=== PATIENT | female | born 1980 | race Caucasian/White ===

== ENCOUNTER 2016-09-21 15:59 | Inpatient (IN) | payer SELFPAY ==
[~2016-09-21] VITALS: Ht 165.1 cm; Wt 121.7 kg
[2016-09-21] MEDS ORDERED: ACETAMINOPHEN 325 MG TABLET PO ONE (16:30)
--- NOTE | 2016-09-21 17:03 | RAD ---
Chest, 2 views, 09/21/2016: History: Fever, cough The heart size and pulmonary vascularity are normal. There is moderate infiltrate in the left lower lobe. No definite right lung infiltrate is seen. There is no evidence of pleural fluid. IMPRESSION: Left lower lobe infiltrate suggesting pneumonia.
[2016-09-21 17:26] LABS: BASO % 0 % (0-3); EOS % 0 % (0-3); HEMATOCRIT 39.6 % (36.0-47.0); HEMOGLOBIN 13.5 g/dL (12.0-15.5); LYMPH # 1.3 x10^3/uL (1.0-4.8); LYMPH % 34 % (24-48); MEAN CORPUSCULAR HEMOGLOBIN 30 pg (25-35); MEAN CORPUSCULAR HGB CONC 34 g/dL (31-37); MEAN CORPUSCULAR VOLUME 88 fL (79-100); MONO # 0.2 x10^3/uL (0.0-1.1); MONO % 6 % (0-9); NEUT # 2.2 x10^3uL (1.8-7.7); NEUT % 60 % (31-73); PLATELET COUNT 191 x10^3/uL (140-400); RED BLOOD COUNT 4.49 x10^6/uL (3.50-5.40); RED CELL DISTRIBUTION WIDTH 13.7 % (11.5-14.5); WHITE BLOOD COUNT 3.8 x10^3/uL (4.0-11.0)
[2016-09-21 17:31] LABS: CREATININE 0.7 mg/dL (0.6-1.0); GFR 94.2
[2016-09-21 17:33] LABS: POTASSIUM 2.9 mmol/L (3.5-5.1)
--- NOTE | 2016-09-21 17:51 | PHYS DOC ---
Past History Past Medical History: Hypothyroid Past Surgical History: Appendectomy, Tubal ligation Alcohol Use: None Drug Use: None Adult General Chief Complaint Chief Complaint: COUGH HPI HPI This 36-year-old lady presents with a cough fever. Her symptoms have been going on since Monday. [facility] and was placed on doxycycline but felt that she was not getting better with continued fever and cough. Because of her fever cough and general malaise she presents now to our emergency department for evaluation Review of Systems Review of Systems Constitutional: The patient is cough fever and chills] Eyes: Denies change in visual acuity, redness, or eye pain [] HENT: Denies nasal congestion does have a slight sore throat from coughing sore throat [] Respiratory She presents with cough and fever and shortness of breath] Cardiovascular: No additional information not addressed in HPI [] GI: Denies abdominal pain, nausea, vomiting, bloody stools or diarrhea [] : Denies dysuria or hematuria [] Musculoskeletal: Denies back pain or joint pain [] Integument: Denies rash or skin lesions [] Neurologic: Denies headache, focal weakness or sensory changes [] Endocrine: Denies polyuria or polydipsia [] Current Medications Current Medications Current Medications Medications (Trade) Dose Ordered Sig/Randolph Start Time Stop Time Status Last Admin Dose Admin Acetaminophen (Tylenol) 650 mg 1X ONCE 09/21/16 16:30 09/21/16 16:31 UNV 09/21/16 17:03 650 MG Azithromycin 500 mg/Sodium Chloride 250 ml @ 250 mls/hr 1X ONCE 09/21/16 17:30 09/21/16 18:29 UNV Ceftriaxone Sodium 1 gm/ Sodium Chloride 50 ml @ 100 mls/hr 1X ONCE 09/21/16 17:30 09/21/16 17:59 UNV Physical Exam Physical Exam Constitutional: Well developed, well nourished, no acute distress, non-toxic appearance. [] HENT: Normocephalic, atraumatic, bilateral external ears normal, oropharynx moist, no oral exudates, nose normal. [] Eyes: PERRLA, EOMI, conjunctiva normal, no discharge. [] Neck: Normal range of motion, no tenderness, supple, no stridor. [] Cardiovascular:Heart rate regular rhythm, no murmur [] Lungs & Thorax: Bilateral breath sounds clear to auscultation she does have decreased breath sounds in the left base] Abdomen: Bowel sounds normal, soft, no tenderness, no masses, no pulsatile masses. [] Skin: Warm, dry, no erythema, no rash. [] Back: No tenderness, no CVA tenderness. [] Extremities: No tenderness, no cyanosis, no clubbing, ROM intact, no edema. [] Neurologic: Alert and oriented X 3, normal motor function, normal sensory function, no focal deficits noted. [] Psychologic: Affect normal, judgement normal, mood normal. [] Current Patient Data Vital Signs Vital Signs Date Time Temp Pulse Resp B/P (MAP) Pulse Ox O2 Delivery O2 Flow Rate FiO2 09/21/16 16:28 99.3 100 20 96 Room Air Lab Results Laboratory Tests Test 09/21/16 17:10 White Blood Count 3.8 x10^3/uL (4.0-11.0) L Red Blood Count 4.49 x10^6/uL (3.50-5.40) Hemoglobin 13.5 g/dL (12.0-15.5) Hematocrit 39.6 % (36.0-47.0) Mean Corpuscular Volume 88 fL (79-100) Mean Corpuscular Hemoglobin 30 pg (25-35) Mean Corpuscular Hemoglobin Concent 34 g/dL (31-37) Red Cell Distribution Width 13.7 % (11.5-14.5) Platelet Count 191 x10^3/uL (140-400) Neutrophils (%) (Auto) 60 % (31-73) Lymphocytes (%) (Auto) 34 % (24-48) Monocytes (%) (Auto) 6 % (0-9) Eosinophils (%) (Auto) 0 % (0-3) Basophils (%) (Auto) 0 % (0-3) Neutrophils # (Auto) 2.2 x10^3uL (1.8-7.7) Lymphocytes # (Auto) 1.3 x10^3/uL (1.0-4.8) Monocytes # (Auto) 0.2 x10^3/uL (0.0-1.1) Eosinophils # (Auto) 0.0 x10^3/uL (0.0-0.7) Basophils # (Auto) 0.0 x10^3/uL (0.0-0.2) Sodium Level 141 mmol/L (136-145) Potassium Level 2.9 mmol/L (3.5-5.1) *L Chloride Level 105 mmol/L (98-107) Carbon Dioxide Level 27 mmol/L (21-32) Anion Gap 9 (6-14) Blood Urea Nitrogen 6 mg/dL (7-20) L Creatinine 0.7 mg/dL (0.6-1.0) Estimated GFR (Cockcroft-Gault) 94.2 Glucose Level 96 mg/dL (70-99) Calcium Level 8.0 mg/dL (8.5-10.1) L EKG EKG [] Radiology/Procedures Radiology/Procedures Chest x-ray reveals a left lower lobe consolidation Impressions: Left lower lobe pneumonia Course & Med Decision Making Course & Med Decision Making As the patient has such a significant pneumonia as well as hypokalemia was decided to admit the hospital with IV antibiotics He was given IV fluids in the emergency department as well as being started on Rocephin and azithromycin she was also given 40 of K-Dur here in the emergency department [] Dragon Disclaimer Dragon Disclaimer This chart was dictated in whole or in part using Voice Recognition software in a busy, high-work load, and often noisy Emergency Department environment. It may contain unintended and wholly unrecognized errors or omissions. Departure Departure: Referrals: BROWN MCCURDY APRN (PCP) RICKY NAVARRO MD Sep 21, 2016 17:51
[2016-09-21] MEDS ORDERED: MORPHINE SULFATE 2 MG/ML DISP.SYRIN. IV PRN (18:00)
[2016-09-21] MEDS ORDERED: ONDANSETRON PF 4 MG/2 ML VIAL. IV PRN (18:00)
[2016-09-21] MEDS ORDERED: IV NORMAL SALINE 1,000ML 1,000 ML IV ONE (18:00)
[2016-09-21] MEDS ORDERED: POTASSIUM CHLORIDE 20 MEQ TABLET.ER. PO ONE (18:15)
[2016-09-21] MEDS ORDERED: AZITHROMYCIN 500 MG in IV NORMAL SALINE 250ML 250 ML IV ONE (18:15)
[2016-09-21] MEDS ORDERED: cefTRIAXone SODIUM 1 GM VIAL IV ONE (18:21)
[2016-09-21] MEDS ORDERED: AZITHROMYCIN 500 MG VIAL. IV ONE (18:21)
[2016-09-21] MEDS ORDERED: IV NORMAL SALINE 250ML 250 ML ONE (18:21)
[2016-09-21] MEDS ORDERED: IV NORMAL SALINE 50ML 50 ML ONE (18:21)
[2016-09-21 19:30] VITALS: BP 127/76
[2016-09-21] MEDS ORDERED: LEVO50TA5 PO (20:22)
[2016-09-21] MEDS ORDERED: GUAI600T47 PO (20:22)
[2016-09-21] MEDS ORDERED: DOXY100C2 PO (20:22)
--- NOTE | 2016-09-21 20:22 | ACF ---
Admission Criteria Forms PNEUMONIA, COMMUNITY ACQUIRED Clinical Indications for Admission to Inpatient Care ( Place 'X' for any and all applicable criteria): Admission is indicated for ANY ONE of the following (1)(2)(3): [ ]I. Hypoxemia indicated by ANY ONE of the following: [ ]a) Oxygen saturation less than 90% while breathing room air [ ]b) PO2 less than 60 mm Hg (8.0 kPa) while breathing room air [ ]c) Chronic lung disease with significant deterioration from baseline oxygenation [X]II. Appropriate diagnostic testing and treatment unavailable in outpatient or recovery facility (eg,testing or infection control measures unavailable(10) [ ]III. Moderate-risk or high-risk category patients (Pneumonia Severity Index (PSI) class IV or V, or CURB-65 score of 3 or greater). [ ]IV. Outpatient treatment failure as indicated by ANY ONE of the following(9) : [ ]a) Failure to respond to antibiotic (eg, resistant organism) [ ]b) Clinically significant adverse effects from medication (eg, vomiting) [ ]c) Complications of pneumonia (eg, empyema, bacteremia) [ ]d) Significant worsening of comorbid cond necessitating inpatient care (eg, chronic heart failure) [ ]V. Intermediate-risk category patients (eg, PSI class III or CURB-65 score 2) who do not improve with initial therapy and observation. [ ]. Immunocompromised patients (eg, AIDS, chronic steroid use) at moderate or high risk based on clinical evaluation. [ ]VII. Complicated pleural effusions (eg, exudative, loculated) [ ]VIII.Hemodynamic instability [ ] IX. Altered mental status that is severe or persistent. [ ]X. Dehydration that is severe or persistent. [ ]XI. Bacteremia [ ]XII. Respiratory finding (eg. tachypnea) that do not respond to outpatient or observation care treatment Extended stay beyond goal length of stay may be needed for (20) [ ]a) Unclear diagnosis [ ]b) Pleural disease [ ]c) Severe pneumonia or treatment failure (25 [ ]d) Respiratory failure (anticipate invasive or noninvasive ventilatory support) [ ]e) Abnormal serum electrolytes (serum Na concentration less than 135 mEq/L (mmol/L) (32)(33) [ ]f) Clinically significant comorbid illness (eg, heart failure, atrial fibrillation with rapid heart rate, alcohol withdrawal, renal insufficiency)(34)(35) [ ]g) Comorbid acute exacerbation of COPD(36) [ ]h) Concomitant diagnosis of malignancy that may be associated with malnutrition, immunologic impairment, or bronchial obstruction. [ ]i) Concomitant altered mental status [ ]j) Culture-identified Gram-negative or antibiotic-resistant organism (eg, Pseudomonas, methicillin-resistant Staphylococcus aureus)(30) [ ]k) Healthcare-associated pneumonia The original [facility] content created by [employer] has been revised. The portions of the content which have been revised are identified through the use of italic text or in bold, and [facility] has neither reviewed nor approved the modified material. All other unmodified content is copyright [employer] [facility] [employer]. Please see references footnoted in the original [employer] [facility] [employer] edition 2016 Admission Criteria Met?: Yes NAYELI KOWALSKI Sep 21, 2016 20:22
[2016-09-21] MEDS: IPRATRPIUM/ALBUTEROL 0.5/2.5MG 3 ML NEBU. NEB SCH (20:35)
[2016-09-21] MEDS: BENZONATATE 100 MG CAPSULE. PO PRN (20:46)
[2016-09-21 22:19] LABS: BILIRUBIN,URINE NEG (NEG); CLARITY,URINE HAZY; COLOR,URINE YELLOW; GLUCOSE,URINE NEG (NEG)
[2016-09-21 22:20] LABS: BACTERIA,URINE 0 /HPF (0-FEW); NITRITE,URINE NEG (NEG); RBC,URINE OCC /HPF (0-2); SQUAMOUS EPITHELIAL CELL,UR MANY /LPF; UROBILINOGEN,URINE 0.2 mg/dL (0.2 mg/dL)
--- NOTE | 2016-09-21 23:01 | NUR ---
The patient, Tamia Zambrano, 36 y/o, F admitted by Dr. Gannon, for pneumonia. [facility] where she was diagnosed with pneumonia. They started her on doxycycline, Mucinex and Tessalon Perles, with no improvement of symptoms. Pt was given written information regarding hospital policies, unit procedures and contact persons. Valuables were checked and left in room. Pt states that she has a 8/10 pain, resting in bed. Oriented to room and unit protocols, call light within reach. Pt is on RA. Antibiotics ordered and labs. Pt able to verbalize POC, will continue to monitor.
[2016-09-21 23:13] VITALS: BP 132/78
[2016-09-21] MEDS: ACETAMINOPHEN 325 MG TABLET PO PRN (23:15)
[2016-09-22] MEDS: BENZONATATE 100 MG CAPSULE. PO PRN ×3 (04:14→20:11)
[2016-09-22 04:20] VITALS: BP 108/72
[2016-09-22] MEDS: IPRATRPIUM/ALBUTEROL 0.5/2.5MG 3 ML NEBU. NEB SCH ×4 (05:38→20:49)
[2016-09-22] MEDS: LEVOTHYROXINE 50 MCG TABLET PO SCH (06:09)
[2016-09-22] MEDS: ACETAMINOPHEN 325 MG TABLET PO PRN ×2 (06:09→11:59)
[2016-09-22 06:31] LABS: BASO % 0 % (0-3); EOS % 0 % (0-3); HEMATOCRIT 36.9 % (36.0-47.0); HEMOGLOBIN 12.6 g/dL (12.0-15.5); LYMPH # 1.5 x10^3/uL (1.0-4.8); LYMPH % 45 % (24-48); MEAN CORPUSCULAR HEMOGLOBIN 30 pg (25-35); MEAN CORPUSCULAR HGB CONC 34 g/dL (31-37); MEAN CORPUSCULAR VOLUME 89 fL (79-100); MONO # 0.2 x10^3/uL (0.0-1.1); MONO % 7 % (0-9); NEUT # 1.6 x10^3uL (1.8-7.7); NEUT % 48 % (31-73); PLATELET COUNT 188 x10^3/uL (140-400); RED BLOOD COUNT 4.15 x10^6/uL (3.50-5.40); RED CELL DISTRIBUTION WIDTH 13.5 % (11.5-14.5); WHITE BLOOD COUNT 3.4 x10^3/uL (4.0-11.0)
[2016-09-22 06:47] LABS: ALBUMIN 2.8 g/dL (3.4-5.0); ALBUMIN/GLOBULIN RATIO 0.8 (1.0-1.7); CALCIUM 7.7 mg/dL (8.5-10.1); CREATININE 0.6 mg/dL (0.6-1.0); GFR 112.5; TOTAL BILIRUBIN 0.3 mg/dL (0.2-1.0); TOTAL PROTEIN 6.4 g/dL (6.4-8.2)
[2016-09-22 06:51] LABS: POTASSIUM 2.8 mmol/L (3.5-5.1)
[2016-09-22] MEDS ORDERED: POTASSIUM CHLORIDE 20 MEQ TABLET.ER. PO ONE ×4 (07:15→10:00)
[2016-09-22] MEDS ORDERED: PNEUMOCOCCAL VAX SCREEN. MC ONE (09:00)
[2016-09-22] MEDS ORDERED: PNEUMOC CONJ VACC 23-VALENT 0.5 ML VIAL. VAX IM ONE (09:00)
[2016-09-22 11:35] VITALS: BP 106/65
[2016-09-22] MEDS: traMADol 50 MG TABLET PO PRN ×2 (13:58→20:12)
--- NOTE | 2016-09-22 14:28 | HP ---
ADMIT DATE: 09/21/2016 HISTORY OF PRESENT ILLNESS: The patient is a 36-year-old female patient, who basically came to the Emergency Room complaining of cough, fever, generalized malaise. She apparently was seen on Monday and was given doxycycline, but the patient did not feel that she is getting any better, in fact getting worse and has frequent episodes of cough that is severe, sometimes ends up with vomiting. She was evaluated in the Emergency Room, was found to have on her chest x-ray left lower lobe pneumonia and was admitted for IV antibiotics as she has failed outpatient treatment. PAST MEDICAL HISTORY: Significant for hyperthyroidism. PAST SURGICAL HISTORY: Significant for appendectomy, tubal ligation, right wrist fracture, status post open reduction and internal fixation. ALLERGIES: She has no known drug allergies. MEDICATIONS: She was on following medications: Levothyroxine sodium 50 mcg once a day, Mucinex 600 mg twice a day and doxycycline hyclate 800 mg twice a day. REVIEW OF SYSTEMS: As per history of present illness. FAMILY HISTORY: She has 2 brothers and 2 sisters. One of her brother is morbidly obese, the other one is healthy. One of her sisters has hypoglycemia and the other has migraine headache. Her father is still alive at age 82 and has severe bronchial asthma. Mother is alive at the age of 67 and is known to have hyperthyroidism. SOCIAL HISTORY: She is engaged. She does not smoke, drinks alcohol occasionally. Does not use any drugs. She is a nurse at [employer]. REVIEW OF SYSTEMS: The patient denied any blurring of vision, cataract, glaucoma or macular degeneration. Denied any earache, tinnitus or sensorineural deafness. Denied any stuffy nose, postnasal drip, or nosebleed. She did complain of sore throat, but denied any nausea, vomiting, diarrhea or constipation. Did have some diarrhea initially and some episodes of vomiting following the severe bouts of cough. Denied any dysuria, frequency or hematuria. She did complain of chest tightness,. Did have also some chest pain because of coughing. Denied any orthopnea or paroxysmal nocturnal dyspnea. She does have cough, mostly dry. PHYSICAL EXAMINATION: GENERAL: On arrival to the Emergency Room, she was slightly tachypneic, tachycardic. No pallor, jaundice, cyanosis, thyromegaly. No jugular venous distention. No limb edema. VITAL SIGNS: Her heart rate was 100, blood pressure 127/76, temperature was 99.3, respiratory rate was 20, and oxygen saturation was 94%. HEAD, EYES, EARS, NOSE AND THROAT: Showed normocephalic, atraumatic. NECK: Supple. HEART: Showed normal first and second heart sounds with no gallop, rub or murmur. CHEST: Showed Central trachea, equal chest expansion, air entry. Sound with crepitation and distraction rub on the left side posteriorly. ABDOMEN: Distended, soft, nontender. No guarding or rigidity. No organomegaly. NEUROLOGIC: She is awake, alert, oriented to time, place and person. Cranial nerves intact. EXTREMITIES: She moves extremities without difficulty. LABORATORY DATA: Showed a white cell count of 3800, hemoglobin 13.5, hematocrit 39.6, MCV 88 and platelet count of 191,000. Her chemistry showed a serum sodium 141, potassium 2.9, chloride 105, bicarbonate 27, anion gap of 9, BUN 6, creatinine was 0.7. Her estimated GFR was 94 mL per minute. Her glucose 96 and calcium was 8. Her urine was yellow, hazy with a pH of 6, specific gravity of 1.010. The urine was negative for protein, glucose. However, the urine was negative for nitrite and leukocyte esterase. Occasional rbc's, 1 to 4 wbc's, no bacteria. Her group A streptococcus rapid testing was negative. Her chest x-ray showed that the heart size and pulmonary vascularity are normal. There is moderate infiltrate in the left lower lobe, no definite right lung infiltrate is seen. There is no evidence of pleural fluid. ASSESSMENT AND PLAN: In summary, this is a 36-year-old female patient, who was admitted with community-acquired pneumonia and has failed outpatient treatment. She was started on IV Zithromax and Rocephin. We will obviously follow her response and once her symptoms subsides we will discharge her home to continue antibiotics as an outpatient. RIELLY GOYAL MD DR: TOOTIE/lyla JOB#: [id number] / [id number]
[2016-09-22 16:16] VITALS: BP 94/60
[2016-09-22] MEDS ORDERED: AZITHROMYCIN 250 MG TABLET. PO SCH (17:00)
[2016-09-22 19:46] VITALS: BP 137/79
[2016-09-22] MEDS ORDERED: AZITHROMYCIN 500 MG in IV NORMAL SALINE 250ML 250 ML IV SCH (20:00)
[2016-09-22] MEDS: POTASSIUM CHLORIDE 20 MEQ TABLET.ER. PO SCH (20:11)
[2016-09-22 23:42] VITALS: BP 134/97
[2016-09-23] MEDS: traMADol 50 MG TABLET PO PRN ×2 (00:10→06:10)
[2016-09-23] MEDS: BENZONATATE 100 MG CAPSULE. PO PRN ×2 (03:03→08:51)
[2016-09-23] MEDS: IPRATRPIUM/ALBUTEROL 0.5/2.5MG 3 ML NEBU. NEB SCH ×2 (05:39→11:03)
[2016-09-23 05:47] VITALS: BP 121/66
[2016-09-23] MEDS: LEVOTHYROXINE 50 MCG TABLET PO SCH (05:52)
[2016-09-23 06:00] LABS: BASO % 0 % (0-3); EOS % 0 % (0-3); HEMATOCRIT 36.5 % (36.0-47.0); LYMPH # 1.6 x10^3/uL (1.0-4.8); LYMPH % 47 % (24-48); MEAN CORPUSCULAR HEMOGLOBIN 30 pg (25-35); MEAN CORPUSCULAR HGB CONC 33 g/dL (31-37); MEAN CORPUSCULAR VOLUME 90 fL (79-100); MONO # 0.2 x10^3/uL (0.0-1.1); MONO % 7 % (0-9); NEUT # 1.6 x10^3uL (1.8-7.7); NEUT % 46 % (31-73); PLATELET COUNT 207 x10^3/uL (140-400); RED BLOOD COUNT 4.05 x10^6/uL (3.50-5.40); RED CELL DISTRIBUTION WIDTH 13.9 % (11.5-14.5); WHITE BLOOD COUNT 3.4 x10^3/uL (4.0-11.0)
[2016-09-23 06:24] LABS: ALBUMIN 2.7 g/dL (3.4-5.0); ALBUMIN/GLOBULIN RATIO 0.8 (1.0-1.7); CREATININE 0.6 mg/dL (0.6-1.0); GFR 112.5; POTASSIUM 4.4 mmol/L (3.5-5.1); TOTAL BILIRUBIN 0.2 mg/dL (0.2-1.0); TOTAL PROTEIN 6.3 g/dL (6.4-8.2)
[2016-09-23] MEDS: POTASSIUM CHLORIDE 20 MEQ TABLET.ER. PO SCH (08:48)
--- NOTE | 2016-09-23 08:51 | NUR ---
PRN tessalon perles given for coughing per patient request. States she slept a little better last night but is sore from coughing. Will continue to monitor.
[2016-09-23] MEDS ORDERED: CEFP200T PO (10:43)
[2016-09-23] MEDS ORDERED: AZIT500T PO (10:43)
[2016-09-23 11:09] VITALS: BP 129/67
--- NOTE | 2016-09-23 12:40 | NUR ---
Discharge Note: NICKY HOLLIDAY [address] Discharge instructions and discharge home medications reviewed with Patient and a copy given. All questions have been answered and understanding verbalized. The following instructions and handouts were given: Adult Pneumonia Discontinued lines and drains: IV discontinued. Patient discharged to home. Picked up and transported by her mother.
--- NOTE | 2016-09-23 20:24 | DS ---
DATE OF DISCHARGE: 09/23/2016 HOSPITAL COURSE: The patient is sitting slightly propped up in bed, in no apparent distress. On questioning her, she denied any complaint, in particular no chest pain or shortness of breath. Cough is much less. She is afebrile. She is hemodynamically stable with normal white cell count and therefore, a decision was made to discharge her home to continue treatment as an outpatient with oral antibiotics. PHYSICAL EXAMINATION: GENERAL: When I saw her this morning, she looked well and was clearly in no apparent respiratory distress, pale, but no jaundice, cyanosis, or thyromegaly. No jugular venous distention. No limb edema. VITAL SIGNS: Her heart rate was 73, blood pressure was 121/66, temperature was 98.9, respiratory rate 16, and oxygen saturation was 92% on room air. HEAD, EYES, EARS, NOSE, AND THROAT: Showed normocephalic, atraumatic. NECK: Supple. HEART: Showed normal first and second sounds. No gallop, rub, or murmur. CHEST: Clear to auscultation. No crepitation or rhonchi. I could not really appreciate any crackles or rhonchi. ABDOMEN: Distended, soft, nontender. No guarding or rigidity. No organomegaly. Hernial orifices intact. Bowel sounds normal. NEUROLOGIC: She was awake, alert, responding appropriately. Cranial nerves intact. She moves all extremities without difficulty. She ambulates without assistance or assistive devices. Her intake was 540, output was 150. LABORATORY DATA: Her lab work showed a white cell count 3400, hemoglobin 12, hematocrit 36.5, MCV 90 and platelet count 207,000 with normal manual differential. Her chemistry showed a serum sodium 141, potassium 4.4, chloride 106, bicarbonate 27, anion gap of 8, BUN 6, creatinine 0.6, estimated GFR was 112.5 mL per minute. Her glucose 96, calcium 8. Total bilirubin, AST, ALT, alkaline phosphatase were normal. Total protein was 6.3, albumin 2.7. DISCHARGE MEDICATIONS: The patient will be discharged home to continue on following medications: Azithromycin 500 mg once a day for 7 days, cefpodoxime 200 mg twice a day for 7 days, Mucinex 600 mg twice a day and levothyroxine sodium 50 mcg once a day. FINAL DISCHARGE DIAGNOSES: 1. Community-acquired pneumonia. 2. Severe hypokalemia, resolved. 3. Hypothyroidism on Synthroid 50 mcg once a day and seems to be clinically euthyroid. 4. Protein-calorie malnutrition with serum albumin was 2.7 g/dL. REILLY GOYAL MD DR: TOOTIE/lyla JOB#: [id number] / [id number]
== END 2016-09-23 12:42 | disposition home or self-care (01) | DRG 871 ==
LOC: ER 15:59 → 1 SOUTH 17:56
PROVIDERS: ADMIT Internal Medicine; ATTEND Internal Medicine
DX: A41.9 Sepsis, unspecified organism (principal); J18.9 Pneumonia, unspecified organism; E43 Unspecified severe protein-calorie malnutrition; Z68.41 Body mass index [BMI] 40.0-44.9, adult; E87.6 Hypokalemia; E05.90 Thyrotoxicosis, unspecified without thyrotoxic crisis or storm; E03.9 Hypothyroidism, unspecified; Z82.5 Family history of asthma and other chronic lower respiratory diseases; Z90.49 Acquired absence of other specified parts of digestive tract; Z98.51 Tubal ligation status
CPT/HCPCS: 36415; 71020; 80048; 80053; 81001; 83605; 84132; 85027; 87040; 87070; 87880; 94640; G0238; J0456; J0696; J2405; J7050; J7620; 99285-25; J7030

== ENCOUNTER 2019-06-03 10:36 | Emergency (ER) | payer OTHER ==
[~2019-06-03] VITALS: Ht 165.1 cm; Wt 118.0 kg
[~2019-06-03 10:36] MED LIST: AZIT500T PO; CEFP200T PO; DOXY100C2 PO; GUAI600T47 PO; LEVO50TA5 PO
[2019-06-03] MEDS ORDERED: KETOROLAC 30 MG/ML VIAL. IVP ONE (11:30)
[2019-06-03 11:47] LABS: BASO # 0.1 x10^3/uL (0.0-0.2); BASO % 1 % (0-3); EOS # 0.2 x10^3/uL (0.0-0.7); EOS % 3 % (0-3); HEMATOCRIT 43.9 % (36.0-47.0); HEMOGLOBIN 14.5 g/dL (12.0-15.5); LYMPH # 2.4 x10^3/uL (1.0-4.8); LYMPH % 34 % (24-48); MEAN CORPUSCULAR HEMOGLOBIN 31 pg (25-35); MEAN CORPUSCULAR HGB CONC 33 g/dL (31-37); MEAN CORPUSCULAR VOLUME 93 fL (79-100); MONO # 0.5 x10^3/uL (0.0-1.1); MONO % 7 % (0-9); NEUT # 3.8 x10^3uL (1.8-7.7); NEUT % 55 % (31-73); PLATELET COUNT 353 x10^3/uL (140-400); RED BLOOD COUNT 4.74 x10^6/uL (3.50-5.40); RED CELL DISTRIBUTION WIDTH 13.2 % (11.5-14.5); WHITE BLOOD COUNT 6.9 x10^3/uL (4.0-11.0)
[2019-06-03 11:55] LABS: CALCIUM 8.6 mg/dL (8.5-10.1); CREATININE 0.7 mg/dL (0.6-1.0); GFR 93.2
[2019-06-03 12:01] LABS: ALBUMIN 3.8 g/dL (3.4-5.0); ALBUMIN/GLOBULIN RATIO 1.1 (1.0-1.7); TOTAL BILIRUBIN 0.3 mg/dL (0.2-1.0); TOTAL PROTEIN 7.4 g/dL (6.4-8.2)
[2019-06-03 12:15] LABS: BACTERIA,URINE FEW /HPF (0-FEW); BILIRUBIN,URINE NEG (NEG); CLARITY,URINE CLEAR; COLOR,URINE YELLOW; GLUCOSE,URINE NEG (NEG); NITRITE,URINE NEG (NEG); SQUAMOUS EPITHELIAL CELL,UR MOD /LPF; UROBILINOGEN,URINE 0.2 mg/dL (0.2 mg/dL)
--- NOTE | 2019-06-03 13:04 | RAD ---
Pelvic ultrasound HISTORY: Right-sided pelvic pain for 2 weeks. History of uterine ablation. Transabdominal scan: Poor visualization of uterus and adnexa. Endovaginal scan: Uterus measures 8.0 x 5.0 x 5.6 cm. Endometrial stripe measures 6 mm. The overall uterus is heterogeneous. Hypoechoic lesion within the uterine fundus measuring 17 x 16 x 10 mm, without evidence of vascularity. Another more anteriorly located uterine lesion measures 17 x 19 x 16 mm and is isoechoic. This demonstrates some internal vascularity. There is suggestion of a "Venetian blind" appearance which can be associated with adenomyosis of the uterus. Right ovary measures 3.4 cm with intact blood supply. Right ovarian cystic lesion measuring 20 x 18 x 15 mm has a simple appearance apart from an internal septation. Left ovary measures 3.2 cm with intact blood supply and a 17 mm cyst/dominant follicle. Nabothian cyst is noted. Mild free pelvic fluid is seen. This has a simple appearance. IMPRESSION: 1. Heterogeneous uterus with a couple of focal lesions and suggestion of a "Venetian blind" appearance. One of the uterine lesions demonstrate and vascularity. Findings could indicate uterine adenomyosis or uterine fibroids. Other etiologies are considered less likely but difficult to exclude. Could further evaluate with short-term follow-up pelvic ultrasound or MR of the uterus. 2. 2.0 cm cystic lesion within the right ovary, most compatible with a septated cyst. Electronically signed by: Mark Saavedra MD (06/03/2019 1:01 PM) [id number]
--- NOTE | 2019-06-03 13:04 | RAD ---
EXAM: AP, lateral and lumbosacral spot views of the lumbar spine DATE: 06/03/2019 11:50 AM INDICATION: Low back pain, radiating to right buttock area COMPARISON: No Prior FINDINGS: Vertebral body heights are preserved. There are 5 nonrib-bearing lumbar-type vertebral bodies. Disc heights are preserved. Straightening of the normal lumbar lordosis. No spondylolisthesis. Moderate colonic stool content is seen. IMPRESSION: 1. Negative acute fracture or subluxation. Electronically signed by: Adolfo Colin MD (06/03/2019 1:01 PM) [id number]
--- NOTE | 2019-06-03 13:07 | PHYS DOC ---
Past History Past Medical History: Hypothyroid Past Surgical History: Appendectomy, Tubal ligation Alcohol Use: None Drug Use: None Adult General Chief Complaint Chief Complaint: BACK PAIN - NO INJURY HPI HPI Patient is a 38-year-old female who presented to ER today for evaluation of right side lower abdominal pain, right-sided groin pain, right-sided buttock pain, cramping and spasm in nature, symptom had been going on off and on for 3 weeks. Patient was seen by her [employer]PER doctor, had pelvic exam done, had ultrasound ordered for her pelvic next week, she continued to have pain, worse with sitting on her buttock, relieve by standing. NO injury. No bowel or bladder incontinence no nausea vomiting. No fever Review of Systems Review of Systems Constitutional: Denies fever or chills [] Eyes: Denies change in visual acuity, redness, or eye pain [] HENT: Denies nasal congestion or sore throat [] Respiratory: Denies cough or shortness of breath [] Cardiovascular: No additional information not addressed in HPI [] GI: positive for right side lower abdominal pain, no nausea, vomiting, bloody stools or diarrhea [] : Denies dysuria or hematuria [] Musculoskeletal: Positive for lower back pain, no joint pain [] Integument: Denies rash or skin lesions [] Neurologic: Denies headache, focal weakness or sensory changes [] Endocrine: Denies polyuria or polydipsia [] All other systems were reviewed and found to be within normal limits, except as documented in this note. Current Medications Current Medications Current Medications Medications (Trade) Dose Ordered Sig/Randolph Start Time Stop Time Status Last Admin Dose Admin Ketorolac Tromethamine (Toradol 30mg Vial) 30 mg 1X ONCE 06/03/19 11:30 06/03/19 11:38 DC 06/03/19 11:39 30 MG Allergies Allergies Allergies Coded Allergies Type Severity Reaction Last Updated Verified No Known Drug Allergies 09/21/16 No Physical Exam Physical Exam Constitutional: Well developed, well nourished, no acute distress, non-toxic appearance. [] HENT: Normocephalic, atraumatic, bilateral external ears normal, oropharynx moist, no oral exudates, nose normal. [] Eyes: PERRLA, EOMI, conjunctiva normal, no discharge. [] Neck: Normal range of motion, no tenderness, supple, no stridor. [] Cardiovascular:Heart rate regular rhythm, no murmur [] Lungs & Thorax: Bilateral breath sounds clear to auscultation [] Abdomen: Bowel sounds normal, soft, there is tenderness at right groin area, right lower abdominal area, no masses, no pulsatile masses. [] Skin: Warm, dry, no erythema, no rash. [] Back: No tenderness, no CVA tenderness. [] Extremities: No tenderness, no cyanosis, no clubbing, ROM intact, no edema. [] Neurologic: Alert and oriented X 3, normal motor function, normal sensory function, no focal deficits noted. [] Psychologic: Affect normal, judgement normal, mood normal. [] Current Patient Data Vital Signs Vital Signs Date Time Temp Pulse Resp B/P (MAP) Pulse Ox O2 Delivery O2 Flow Rate FiO2 06/03/19 10:38 98.2 75 16 144/82 (102) 98 Room Air Lab Results Laboratory Tests Test 06/03/19 11:28 06/03/19 11:33 06/03/19 11:49 White Blood Count 6.9 x10^3/uL (4.0-11.0) Red Blood Count 4.74 x10^6/uL (3.50-5.40) Hemoglobin 14.5 g/dL (12.0-15.5) Hematocrit 43.9 % (36.0-47.0) Mean Corpuscular Volume 93 fL (79-100) Mean Corpuscular Hemoglobin 31 pg (25-35) Mean Corpuscular Hemoglobin Concent 33 g/dL (31-37) Red Cell Distribution Width 13.2 % (11.5-14.5) Platelet Count 353 x10^3/uL (140-400) Neutrophils (%) (Auto) 55 % (31-73) Lymphocytes (%) (Auto) 34 % (24-48) Monocytes (%) (Auto) 7 % (0-9) Eosinophils (%) (Auto) 3 % (0-3) Basophils (%) (Auto) 1 % (0-3) Neutrophils # (Auto) 3.8 x10^3uL (1.8-7.7) Lymphocytes # (Auto) 2.4 x10^3/uL (1.0-4.8) Monocytes # (Auto) 0.5 x10^3/uL (0.0-1.1) Eosinophils # (Auto) 0.2 x10^3/uL (0.0-0.7) Basophils # (Auto) 0.1 x10^3/uL (0.0-0.2) Sodium Level 142 mmol/L (136-145) Potassium Level 4.0 mmol/L (3.5-5.1) Chloride Level 105 mmol/L (98-107) Carbon Dioxide Level 28 mmol/L (21-32) Anion Gap 9 (6-14) Blood Urea Nitrogen 12 mg/dL (7-20) Creatinine 0.7 mg/dL (0.6-1.0) Estimated GFR (Cockcroft-Gault) 93.2 BUN/Creatinine Ratio 17 (6-20) Glucose Level 90 mg/dL (70-99) Calcium Level 8.6 mg/dL (8.5-10.1) Total Bilirubin 0.3 mg/dL (0.2-1.0) Aspartate Amino Transferase (AST) 18 U/L (15-37) Alanine Aminotransferase (ALT) 33 U/L (14-59) Alkaline Phosphatase 56 U/L (46-116) Total Protein 7.4 g/dL (6.4-8.2) Albumin 3.8 g/dL (3.4-5.0) Albumin/Globulin Ratio 1.1 (1.0-1.7) Urine Collection Type Unknown Urine Color Yellow Urine Clarity Clear Urine pH 8.0 Urine Specific [place] 1.020 Urine Protein Neg (NEG-TRACE) Urine Glucose (UA) Neg mg/dL (NEG) Urine Ketones (Stick) Neg mg/dL (NEG) Urine Blood Neg (NEG) Urine Nitrite Neg (NEG) Urine Bilirubin Neg (NEG) Urine Urobilinogen Dipstick 0.2 mg/dL (0.2 mg/dL) Urine Leukocyte Esterase Neg (NEG) Urine RBC 1-2 /HPF (0-2) Urine WBC 1-4 /HPF (0-4) Urine Squamous Epithelial Cells Mod /LPF Urine Bacteria Few /HPF (0-FEW) Urine Mucus Slight /LPF POC Urine HCG, Qualitative hcg negative (Negative) EKG EKG [] Radiology/Procedures Radiology/Procedures [][address] [address] IMAGING REPORT Signed PATIENT: NICKY NGUYEN ACCOUNT: [id number] : 1980 LOCATION: ER AGE: 38 SEX: F EXAM STATUS: REG ER ORD. PHYSICIAN: ANNA JIMENEZ DO REASON: right side pelvic pain for 2 weeks PROCEDURE: US PELVIS W/TV Pelvic ultrasound HISTORY: Right-sided pelvic pain for 2 weeks. History of uterine ablation. Transabdominal scan: Poor visualization of uterus and adnexa. Endovaginal scan: Uterus measures 8.0 x 5.0 x 5.6 cm. Endometrial stripe measures 6 mm. The overall uterus is heterogeneous. Hypoechoic lesion within the uterine fundus measuring 17 x 16 x 10 mm, without evidence of vascularity. Another more anteriorly located uterine lesion measures 17 x 19 x 16 mm and is isoechoic. This demonstrates some internal vascularity. There is suggestion of a "Venetian blind" appearance which can be associated with adenomyosis of the uterus. Right ovary measures 3.4 cm with intact blood supply. Right ovarian cystic lesion measuring 20 x 18 x 15 mm has a simple appearance apart from an internal septation. Left ovary measures 3.2 cm with intact blood supply and a 17 mm cyst/dominant follicle. Nabothian cyst is noted. Mild free pelvic fluid is seen. This has a simple appearance. IMPRESSION: 1. Heterogeneous uterus with a couple of focal lesions and suggestion of a "Venetian blind" appearance. One of the uterine lesions demonstrate and vascularity. Findings could indicate uterine adenomyosis or uterine fibroids. Other etiologies are considered less likely but difficult to exclude. Could further evaluate with short-term follow-up pelvic ultrasound or MR of the uterus. 2. 2.0 cm cystic lesion within the right ovary, most compatible with a septated cyst. Electronically signed by: Mark Saavedra MD (06/03/2019 1:01 PM) [id number] DICTATED AND SIGNED BY: MARK SAAVEDRA MD DATE: 06/03/19 1303 CC: REYES BLACKWELL JR, MD; ANNA JIMENEZ DO; BROWN MCCURDY APRN ~ [address] [address] IMAGING REPORT Signed PATIENT: NICKY NGUYEN ACCOUNT: [id number] : 1980 LOCATION: ER AGE: 38 SEX: F EXAM STATUS: REG ER ORD. PHYSICIAN: ANNA JIMENEZ DO REASON: lower back pain, radiating to right buttock area PROCEDURE: LUMBAR SPINE 2-3V EXAM: AP, lateral and lumbosacral spot views of the lumbar spine DATE: 06/03/2019 11:50 AM INDICATION: Low back pain, radiating to right buttock area COMPARISON: No Prior FINDINGS: Vertebral body heights are preserved. There are 5 nonrib-bearing lumbar-type vertebral bodies. Disc heights are preserved. Straightening of the normal lumbar lordosis. No spondylolisthesis. Moderate colonic stool content is seen. IMPRESSION: 1. Negative acute fracture or subluxation. Electronically signed by: Adolfo Meyer MD (06/03/2019 1:01 PM) [id number] DICTATED AND SIGNED BY: ADOLFO MEYER MD DATE: 06/03/19 1301 CC: ANNA JIMENEZ DO; BROWN MCCURDY APRN ~ Course & Med Decision Making Course & Med Decision Making Pertinent Labs and Imaging studies reviewed. (See chart for details) [] Dragon Disclaimer Dragon Disclaimer This electronic medical record was generated, in whole or in part, using a voice recognition dictation system. Departure Departure: Impression: Primary Impression: Ovarian cyst Additional Impressions: Fibroid Back pain Disposition: 01 HOME, SELF-CARE Condition: STABLE Referrals: BROWN MCCURDY APRN (PCP) follow up with your doctor for reevaluation next week Patient Instructions: Back Pain, Adult, Ovarian Cyst, Uterine Fibroid, [id number] Additional Instructions: Thank you for visiting our Emergency Department. We appreciate you trusting us with your care. If any additional problems come up don't hesitate to return to visit us. Please follow up with your primary care provider so they can plan additional care if needed and know about the problem that you had. If symptoms worsen come back to the Emergency Department. Any concerning symptoms that start such as chest pain, shortness of air, weakness or numbness on one side of the body, running high fevers or any other concerning symptoms return to the ER. Scripts Ibuprofen (IBUPROFEN) 800 Mg Tablet 1 TAB PO TID for pain, #30 TAB Prov: ANNA JIMENEZ DO 06/03/19 Tramadol Hcl (TRAMADOL HCL) 50 Mg Tablet 50 MG PO PRN Q6HRS PRN for PAIN, #20 TAB Prov: ANNA JIMENEZ DO 06/03/19 Problem Qualifiers ANNA JIMENEZ DO Jun 03, 2019 13:07
[2019-06-03 13:20] VITALS: BP 136/90
[2019-06-03] MEDS ORDERED: IBUP800T19 PO (13:33)
[2019-06-03] MEDS ORDERED: TRAM50TA PO (13:33)
== END 2019-06-03 13:39 | disposition home or self-care (01) ==
LOC: ER 10:36
DX: N83.201 Unspecified ovarian cyst, right side (principal); D21.9 Benign neoplasm of connective and other soft tissue, unspecified; M54.9 Dorsalgia, unspecified; E03.9 Hypothyroidism, unspecified; Z90.49 Acquired absence of other specified parts of digestive tract
CPT/HCPCS: 36415; 72100; 76830; 76856; 80053; 81001; 81025; 85025; 96374; 99285; J1885

== ENCOUNTER → 2019-10-31 | Outpatient (CLI) | payer OTHER ==
[~2019-10-31] MED LIST changes: +IBUP800T19 PO; +TRAM50TA PO
== END ==
LOC: LAB 15:16
PROVIDERS: ATTEND Internal Medicine Cardiovascular Disease
DX: Z03.818 Encounter for observation for suspected exposure to other biological agents ruled out (principal)
CPT/HCPCS: 36415; U0003-CS

== ENCOUNTER → 2020-05-14 | Outpatient (CLI) | payer OTHER ==
--- NOTE | 2020-05-14 16:46 | RAD ---
INDICATION: Reason: BILATERAL FLANK PAIN WITH HEMATUIRA ONSET YESTERDAY / Spl. Instructions: / Histo ry: . COMPARISON: None. TECHNIQUE: Axial CT images obtained through the abdomen and pelvis without contrast. One or more of the following individualized dose reduction techniques were utilized for this examinat ion: 1. Automated exposure control; 2. Adjustment of the mA and/or kV according to patient size; 3 . Use of iterative reconstruction technique. FINDINGS: Abdominal aorta is not aneurysmal. Scattered calcific atherosclerosis. Contracted gallbladder. No intrahepatic bile duct dilation. No peripancreatic fluid collection. Low-density focus within the pancreatic body measuring approximately 6 mm. Spleen is unremarkable. No hydronephrosis. No dilated loops of bowel to suggest obstruction. There is some degenerative changes of the spine with multilevel central canal and neural foraminal st enosis. IMPRESSION: * No hydronephrosis or radiopaque obstructive ureter stone. * No evidence of bowel obstruction. Electronically signed by: Corbin Wilson MD (05/14/2020 4:44 PM) [id number]
== END ==
LOC: URGCARE 16:07
PROVIDERS: ATTEND Nurse Practitioner Family
DX: R10.9 Unspecified abdominal pain (principal)
CPT/HCPCS: 74176

== ENCOUNTER 2020-10-04 18:12 | Emergency (ER) | payer OTHER ==
[~2020-10-04] VITALS: Ht 165.1 cm; Wt 123.8 kg
--- NOTE | 2020-10-04 18:15 | PHYS DOC ---
Past History Past Medical History: Hypothyroid Past Surgical History: Appendectomy, Tubal ligation Alcohol Use: None Drug Use: None General Adult HPI: HPI: ". I was using a box toe cutter.. and cut the wrong thing.." Patient is a 40 year old female who presents with above hx and complaints of laceration to middle Lt. finger. Less than 1/2 cm. Does appear to go to the DIP of outside capsule of the joint. Patient does have good range of motion. Distal neurovascular appears to be intact. Cap refill is equal to other hand. Patient normally healthy. Up-to-date vaccinations. No recent travel. Has a history of hypothyroidism,. No specific ill contacts. Patient is right-hand dominant. Normally follows with [facility] for care. Review of Systems: Review of Systems: Constitutional: Denies fever or chills Eyes: Denies change in visual acuity HENT: Denies nasal congestion or sore throat Respiratory: Denies cough or shortness of breath Cardiovascular: Denies chest pain or edema GI: Denies abdominal pain, nausea, vomiting, bloody stools or diarrhea : Denies dysuria Musculoskeletal: Complains of left middle finger laceration Integument: Denies rash Neurologic: Denies headache, focal weakness or sensory changes Endocrine: Denies polyuria or polydipsia Lymphatic: Denies swollen glands Psychiatric: Denies depression or anxiety Family History: Family History: Noncontributory presentation Current Medications: Current Meds: See nursing for home meds Allergies: Allergies: Allergies Coded Allergies Type Severity Reaction Last Updated Verified No Known Drug Allergies 09/21/16 No Physical Exam: PE: Constitutional: Well developed, well nourished, moderate acute distress, non- toxic appearance. [] HENT: Normocephalic, atraumatic, bilateral external ears normal, oropharynx moist, no oral exudates, nose normal. [] Eyes: PERRLA, EOMI, conjunctiva normal, no discharge. [] Neck: Normal range of motion, no tenderness, supple, no stridor. [] Cardiovascular:Heart rate regular rhythm, no murmur [] Lungs & Thorax: Bilateral breath sounds clear to auscultation [] Abdomen: Bowel sounds normal, soft, no tenderness, no masses, no pulsatile masses. Old surgical scar Skin: Warm, dry, no erythema, no rash. [] Back: No tenderness, no CVA tenderness. [] Extremities: No tenderness, no cyanosis, no clubbing, ROM intact, no edema. L aceration to middle finger as per HPI Neurologic: Alert and oriented X 3, normal motor function, normal sensory function, no focal deficits noted. [] Psychologic: Affect anxious, judgement normal, mood normal. [] EKG: EKG: [] Radiology/Procedures: Radiology/Procedures: [] Heart Score: C/O Chest Pain: N/A Risk Factors: Risk Factors: DM, Current or recent (<one month) smoker, HTN, HLP, family history of CAD, obesity. Risk Scores: Score 0 - 3: 2.5% MACE over next 6 weeks - Discharge Home Score 4 - 6: 20.3% MACE over next 6 weeks - Admit for Clinical Observation Score 7 - 10: 72.7% MACE over next 6 weeks - Early Invasive Strategies Course & Med Decision Making: Course & Med Decision Making Pertinent Labs and Imaging studies reviewed. (See chart for details) Procedure note -laceration repair-laceration cleaned with soap and water irrigated normal saline and range of motion. Injected edge of laceration of lidocaine. Reirrigated with saline under pressure and range of motion. Closed laceration with five 4-0 Prolene. Patient keep laceration clean and dry. Polysporin 4 times a day. Follow-up primary care. Return if any concerns. Because of the depth and location will place patient on Keflex 500 mg 3 times a day. Sutures out in 10 days Impression: 1. Laceration Middle finger Lt. 1.5cm [] Yeison Disclaimer: Yeison Disclaimer: This electronic medical record was generated, in whole or in part, using a voice recognition dictation system. Departure Departure: Referrals: ALEX ARRIAGA (PCP) Scripts Cephalexin (CEPHALEXIN) 500 Mg Capsule 500 MG PO TID for laceration for 7 Days, #21 CAP Prov: CARLY LOPEZ MD 10/04/20 CARLY LOPEZ MD Oct 04, 2020 18:15
[2020-10-04] MEDS ORDERED: CEPH500C PO (18:52)
[2020-10-04 19:00] VITALS: BP 163/100
[2020-10-04] MEDS ORDERED: CEPHALEXIN 250 MG CAPSULE PO ONE (19:00)
== END 2020-10-04 19:03 | disposition home or self-care (01) ==
LOC: ER 18:12
DX: S61.213A Laceration without foreign body of left middle finger without damage to nail, initial encounter (principal); E03.9 Hypothyroidism, unspecified; W26.8XXA Contact with other sharp object(s), not elsewhere classified, initial encounter; Y93.89 Activity, other specified; Y92.89 Other specified places as the place of occurrence of the external cause; Y99.8 Other external cause status
CPT/HCPCS: 12001; 99283